=== PATIENT | male | born 1950 | race Caucasian/White ===

== ENCOUNTER → 2017-01-18 | Outpatient (CLI) | payer BC ==
[~2017-01-18] MED LIST: ANTIVERT/2525 M1 PO; ASPIRIN81 M1 PO; BACTRIM DS 8001 TA1 PO; BENTYL10 MG PO; BUSPAR15 MG PO; CELEXA10 MG PO; FINASTERIDE5 M1 PO; LAMICTAL100 MG PO; LAMICTAL200 MG PO; LEXAPRO10 MG PO; LIPITOR40 MG PO; NEURONTIN300 MG PO; NEXIUM40 MG PO; NORCO 5-325 TA1 EACH PO; ROPINIROLE HYDRO1 MG PO; ROPINIROLE HYDRO2 M1 PO; SEROQUEL200 MG PO; TRAZODONE100 MG PO; ZOVIRAX 5%2 GM T
== END | disposition home or self-care (01) ==
LOC: RAD 13:14
DX: R05 Cough (principal); J43.9 Emphysema, unspecified; Z86.79 Personal history of other diseases of the circulatory system

== ENCOUNTER 2017-02-27 11:45 | Emergency (ER) | payer BC ==
[~2017-02-27] VITALS: Ht 182.8 cm; Wt 105.2 kg
[2017-02-27] MEDS ORDERED: CLINDAMYCIN150 MG PO (12:00)
[2017-02-27] MEDS ORDERED: ANTIBIOTIC O500 U/GM T (12:00)
== END 2017-02-27 12:06 | disposition home or self-care (01) ==
LOC: ED 11:45
DX: S61.214A Laceration without foreign body of right ring finger without damage to nail, initial encounter (principal); R03.0 Elevated blood-pressure reading, without diagnosis of hypertension; K21.9 Gastro-esophageal reflux disease without esophagitis; Z79.899 Other long term (current) drug therapy; W26.0XXA Contact with knife, initial encounter; Y93.89 Activity, other specified; Y92.89 Other specified places as the place of occurrence of the external cause; Y99.8 Other external cause status

== ENCOUNTER → 2017-05-22 | Outpatient (CLI) | payer BC ==
[~2017-05-22] MED LIST changes: +ANTIBIOTIC O500 U/GM T; +CLINDAMYCIN150 MG PO
== END | disposition home or self-care (01) ==
LOC: RAD 11:09
DX: J40 Bronchitis, not specified as acute or chronic (principal)

== ENCOUNTER → 2017-10-21 | Day surgery (SDC) | payer BC ==
[~2017-10-21] VITALS: Ht 182.8 cm; Wt 104.3 kg
[2017-10-21] VITALS (8 sets, daily range): BP systolic 98–121; BP diastolic 52–89
--- NOTE | ~2017-10-21 | PROC NOTE ---
[place], [place] PROCEDURE NOTE [id number] #: [id number] ROOM: DOCTOR: TRACI VAUGHN MD BIRTHDATE: [birth year] DOS: 10/21/2017 PROCEDURE: 1. Esophagogastroduodenoscopy and biopsy. 2. Colonoscopy. INDICATIONS: Abdominal pain and colon cancer screening. Informed consent was obtained from the patient after the indication of procedures, alternatives and potential complications were explained to him. PROCEDURE MEDICATIONS: Sedation was administered by Anesthesiology Department. Scope used for upper endoscopy was the Olympus diagnostic adult upper endoscope GIF-180. Depth of insertion was to the descending duodenum. With the colonoscopy, the scope used was Olympus pediatric colonoscope, variable stiffness, GIF-180. Depth of insertion was to the cecum, which was identified by the usual landmarks, appendiceal orifice, ileocecal valve and triangular fold, in addition to transillumination in the right lower quadrant. FINDINGS: After adequate sedation, the patient was placed in left lateral decubitus position. Upper endoscopy was performed first. The scope was introduced under direct visualization through the upper esophageal sphincter into the esophagus. Esophageal mucosa appeared normal with no ulcerations or strictures. Lower esophageal sphincter was identified at 40 cm from incisors. Stomach was then intubated. Gastric mucosa inspected. Moderate gastritis was seen with no discrete ulcers or active bleeding. A CLOtest was performed from the gastric antrum and body. On retroflexed views of the fundus, no hiatal hernia was seen. Pylorus was intubated easily. The duodenal bulb and descending duodenum were within normal range. Scope was then withdrawn after the stomach was decompressed. We then proceeded with a colonoscopy. Rectal examination showed diminished sphincter tone and no external hemorrhoids. Scope was introduced into the rectum and advanced to the cecum with no difficulty. Moderate left-sided diverticular disease was noted, but no acute diverticulitis or diverticular hemorrhage. The remaining colon mucosa appeared otherwise normal with no evidence of polyps, ulcerations or obstructing lesions. Retroflexed views in the rectum were unremarkable. The scope was then withdrawn after the rectum was decompressed. The patient tolerated the procedures well. IMPRESSION: 1. Moderate gastritis, CLOtest performed. 2. Normal upper GI tract otherwise. 3. Diverticulosis of the left colon. 4. Normal colon mucosa otherwise, no polyps seen. PLAN: We will review the CLOtest results and treat the patient accordingly. The patient was advised to follow a high fiber diet and use fiber supplements daily. Repeat screening colonoscopy is recommended in 10 years. Office followup in 1-2 weeks. [place], [place] PROCEDURE NOTE NAME: SANTIAGO TEE UNIT #: [id number] ROOM: DOCTOR: TRACI VAUGHN MD BIRTHDATE: [birth year] TRACI VAUGHN MD CM:PROCNOTE:PROCEDURE NOTE [id number] TRACI VAUGHN MD
== END | disposition home or self-care (01) ==
LOC: SDC 10-18 13:15
DX: Z12.11 Encounter for screening for malignant neoplasm of colon (principal); K29.70 Gastritis, unspecified, without bleeding; K57.30 Diverticulosis of large intestine without perforation or abscess without bleeding; K21.9 Gastro-esophageal reflux disease without esophagitis; F41.9 Anxiety disorder, unspecified; F32.9 Major depressive disorder, single episode, unspecified; Z86.73 Personal history of transient ischemic attack (TIA), and cerebral infarction without residual deficits; Z82.49 Family history of ischemic heart disease and other diseases of the circulatory system

== ENCOUNTER 2017-12-01 12:30 | Emergency (ER) | payer MEDICARE, BC ==
[~2017-12-01] VITALS: Ht 182.8 cm; Wt 106.6 kg
[2017-12-01 13:00] LABS: BASO % 0.4 % (0.0-1.0); EOS # 0.2 10*3/uL (0.0-0.4); HEMATOCRIT 39.2 % (42.0-52.0); HEMOGLOBIN 13.1 g/dl (14.0-18.0); LYMPH # 1.9 10*3/uL (1.3-4.4); LYMPH % 26.2 % (27.0-41.0); MEAN CORPUSCULAR HGB 30.8 pg (27.0-31.0); MEAN CORPUSCULAR HGB CONC 33.4 g/dl (33.0-37.0); MEAN PLATELET VOLUME 9.3 fl (9.6-12.3); MONO # 0.4 10*3/uL (0.1-1.0); NEUT # 4.7 10*3/uL (2.3-7.9); NEUT % 64.1 % (47.0-73.0); PLATELET COUNT AUTOMATED 247 10*3/uL (130-400); RED BLOOD COUNT 4.26 10*6/uL (4.50-5.90); RED CELL DISTRI WIDTH 13.4 % (0-14.5); WHITE BLOOD COUNT 7.4 10*3/uL (4.8-10.8)
[2017-12-01 13:21] LABS: ALBUMIN 3.8 gm/dl (3.1-4.5); ALKALINE PHOSPHATASE 95 U/L (45-117); BUN 16 mg/dl (7-24); CHLORIDE 100 mmol/L (98-107); CREATININE 1.16 mg/dL (0.70-1.30); POTASSIUM 3.9 mmol/L (3.5-5.1); SGOT/AST 23 IU/L (3-35); SGPT/ALT 25 U/L (12-78); SODIUM 139 mmol/L (136-145); TOTAL PROTEIN 7.9 gm/dL (6.4-8.2)
[2017-12-01 13:24] LABS: ETHYL ALCOHOL < 3.0 mg/dl (<3)
[2017-12-01 13:29] LABS: THYROID STIM HORMONE (HS) 0.752 uIU/ml (0.358-4.75)
[2017-12-01 14:46] LABS: BILIRUBIN NEGATIVE (NEGATIVE); BLOOD NEGATIVE (NEGATIVE); CLARITY CLEAR (CLEAR); COLOR YELLOW (YELLOW); GLUCOSE NEGATIVE (NEGATIVE); KETONE NEGATIVE (NEGATIVE); LEUKO ESTERASE NEGATIVE (NEGATIVE); NITRITE NEGATIVE (NEGATIVE); SPECIFIC GRAVITY <= 1.005 (1.005-1.030); UROBILINOGEN 0.2 E.U./dl (0.2-1.0)
[2017-12-01 14:59] LABS: BACTERIA TRACE; EPITHELIAL CELLS 0-2; RBC 0-2 rbc/hpf (0-2)
[2017-12-01 15:02] LABS: URINE AMPHETAMINES < 1000 (1000ng/ml); URINE BENZODIAZEPINES < 200 (200ng/ml); URINE CANNABINOIDS (THC) < 50 (50ng/ml); URINE METHADONE < 300 (300ng/ml)
[2017-12-01 15:04] LABS: URINE BARBITURATES < 200 (200ng/ml); URINE COCAINE < 300 (300ng/ml); URINE OPIATES < 300 (300ng/ml)
[2017-12-01 15:07] LABS: URINE PHENCYCLIDINE < 25 (25ng/ml)
== END 2017-12-01 15:58 | disposition other institution (70) ==
LOC: ED 12:30
PROVIDERS: Nurse Practitioner Family
DX: F33.9 Major depressive disorder, recurrent, unspecified (principal); K21.9 Gastro-esophageal reflux disease without esophagitis; Z79.899 Other long term (current) drug therapy

== ENCOUNTER 2017-12-01 16:01 | Inpatient (IN) | payer MEDICARE, BC ==
[~2017-12-01] VITALS: Ht 182.8 cm; Wt 106.6 kg
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
--- NOTE | ~2017-12-01 | PR ---
[place], [place] PROGRESS NOTE NAME: SANTIAGO TEE UNIT #: [id number] ROOM: 314 DOCTOR: MEKHI NIX MD BIRTHDATE: [birth year] DOS: 12/04/2017 CHIEF COMPLAINT: "I think I have it figured out where I am going to go and I think these medicines are actually helping." SUMMARY OF THE VISIT: The patient was interviewed in the dining area where he was sitting watching television. He engaged readily in conversation and reported that he is sleeping better. He is feeling better. He still now is complaining of some back pain and this may be related to some med seeking, but otherwise he seems brighter upon approach. He states that he does have some ideas about where he can go once he is discharged and feels that he is in charge of things now. He convincingly denies medication side effects. He denies suicidal thoughts, homicidal thoughts or any self-injurious thoughts. MENTAL STATUS: He is alert and oriented to person, place and time. Mood does seem to be euthymic. Affect appropriate. There is no charla, hypomania or psychosis. Memory is intact. PLAN: I will max out the Vraylar to 6 mg at bedtime, continue to support and monitor, engage in individual and brock milieu activity, returning to the least restrictive environment when psychiatrically stable. MEKHI NIX MD CM:PNTRANS [id number] MEKHI NIX MD 12/04/17 1136 interface
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
--- NOTE | ~2017-12-01 | PR ---
[place], [place] PROGRESS NOTE NAME: SANTIAGO TEE UNIT #: [id number] ROOM: 314 DOCTOR: MEKHI NIX MD BIRTHDATE: [birth year] DOS: 12/03/2017 CHIEF COMPLAINT: "Can I have something for sleep. I think I'm doing better." SUMMARY OF THE VISIT: The patient was interviewed in the dining area. He reported to me that he thinks he is feeling less depressed and is doing well. His initial concern that these medicines would not be effective or would cause side effects is dissipating and he does state that he is now hopeful that they will offer an improvement over his previous medication. He did report he did not sleep well, although nurses report the contrary that he slept throughout the night. He convincingly denies medication side effects. MENTAL STATUS: He is alert and oriented with some time gaps. Mood does still seem to be depressed with anxious overtones. He reports a lot of intrusive, obsessive thoughts, but his racing thoughts that he noted previously are dissipating. There is no hypomania or charla. There is no acute psychosis noted. Memory for the most part is intact. PLAN: His vitamin D level is subtherapeutic at 14.6. So, I will augment with vitamin D 50,000 International Units weekly. I will increase the Remeron from 15 mg at bedtime to 22.5 mg at bedtime while simultaneously increasing the Vraylar from 3-4.5 mg at bedtime to further stabilize mood. I will add Rozerem, a nonaddicting sleep aid at 8 mg at bedtime to further aid his sleep. We will engage in individual and brock milieu activity with the ultimate plan to return home or the least restrictive environment when psychiatrically stable. MEKHI NIX MD CM:PNTRANS [id number] MEKHI NIX MD 12/03/17 0933 interface
[2017-12-01 16:20] VITALS: BP 144/84
[2017-12-01 19:49] VITALS: BP 133/80
[2017-12-02 07:39] VITALS: BP 119/72
[2017-12-02 08:01] LABS: ACT PARTIAL THROMBO TIME 22.4 SECONDS (20.8-31.5); INTERNATIONAL NORM RATIO 1.2 (2.0-3.5)
[2017-12-02 08:05] LABS: THYROID STIM HORMONE (HS) 0.719 uIU/ml (0.358-4.75)
[2017-12-02 09:02] LABS: VITAMIN D, 25-HYDROXY 14.6 ng/mL (30-100)
[2017-12-02 20:00] VITALS: BP 129/72
[2017-12-03 07:57] VITALS: BP 127/86
[2017-12-03 20:01] VITALS: BP 117/76
[2017-12-04 07:49] VITALS: BP 132/70
[2017-12-04 20:03] VITALS: BP 121/74
[2017-12-05 07:43] VITALS: BP 138/76
[2017-12-05] MEDS ORDERED: ROZEREM8 MG PO (09:15)
[2017-12-05] MEDS ORDERED: MIRTAZAPINE15 M2 PO (09:15)
[2017-12-05] MEDS ORDERED: Vitamin D PO (09:15)
[2017-12-05] MEDS ORDERED: GABAPENTIN400 MG PO (09:15)
[2017-12-05] MEDS ORDERED: LAMOTRIGINE100 MG PO (09:15)
[2017-12-05] MEDS ORDERED: VRAYLAR6 MG PO (09:15)
[2017-12-06 10:03] LABS: NEURONTIN (GABAPENTIN) 3.9 ug/mL (4.0-16.0)
== END 2017-12-05 14:11 | disposition home or self-care (01) | DRG 885 ==
LOC: 3N 16:01
PROVIDERS: Family Medicine Adult Medicine; Psychiatry & Neurology Psychiatry
DX: F31.81 Bipolar II disorder (principal); R45.851 Suicidal ideations; I10 Essential (primary) hypertension; K21.9 Gastro-esophageal reflux disease without esophagitis; X08.8XXA Exposure to other specified smoke, fire and flames, initial encounter; F41.9 Anxiety disorder, unspecified; T23.071A Burn of unspecified degree of right wrist, initial encounter; G25.81 Restless legs syndrome; D64.9 Anemia, unspecified; E78.2 Mixed hyperlipidemia; Z98.52 Vasectomy status; Z82.49 Family history of ischemic heart disease and other diseases of the circulatory system; Z82.0 Family history of epilepsy and other diseases of the nervous system; Z79.899 Other long term (current) drug therapy; Y93.89 Activity, other specified; Y92.89 Other specified places as the place of occurrence of the external cause; Y99.8 Other external cause status

== ENCOUNTER → 2019-03-16 | Outpatient (CLI) | payer MEDICARE ==
[~2019-03-16] MED LIST changes: +CEPHALEXIN500 M1 PO; +GABAPENTIN400 MG PO; +LAMOTRIGINE100 MG PO; +MIRTAZAPINE15 M2 PO; +ROZEREM8 MG PO; +VRAYLAR6 MG PO; +Vitamin D PO
[2019-03-16 13:15] LABS: BASO # 0.1 10*3/uL (0.0-0.1); BASO % 0.7 % (0.0-1.0); EOS # 0.3 10*3/uL (0.0-0.4); EOS % 3.9 % (1.0-4.0); HEMATOCRIT 42.5 % (42.0-52.0); HEMOGLOBIN 14.2 g/dl (14.0-18.0); LYMPH # 2.2 10*3/uL (1.3-4.4); LYMPH % 31.1 % (27.0-41.0); MEAN CELL VOLUME 93.8 fl (80.0-94.0); MEAN CORPUSCULAR HGB 31.3 pg (27.0-31.0); MEAN CORPUSCULAR HGB CONC 33.4 g/dl (33.0-37.0); MEAN PLATELET VOLUME 9.9 fl (9.6-12.3); MONO # 0.5 10*3/uL (0.1-1.0); MONO % 6.8 % (3.0-9.0); NEUT # 4.1 10*3/uL (2.3-7.9); NEUT % 57.2 % (47.0-73.0); PLATELET COUNT AUTOMATED 236 10*3/uL (130-400); RED BLOOD COUNT 4.53 10*6/uL (4.50-5.90); RED CELL DISTRI WIDTH 13.7 % (0-14.5); WHITE BLOOD COUNT 7.1 10*3/uL (4.8-10.8)
[2019-03-16 13:47] LABS: ALBUMIN 3.8 gm/dl (3.1-4.5); ALKALINE PHOSPHATASE 100 U/L (45-117); BUN 17 mg/dl (7-24); CHLORIDE 107 mmol/L (98-107); CHOLESTEROL 164 mg/dL (<200); HDL CHOLESTEROL 52 mg/dl (40-60); LDL CHOLESTEROL 88 mg/dL (9-159); SGOT/AST 11 IU/L (3-35); SGPT/ALT 19 U/L (12-78); SODIUM 142 mmol/L (136-145); TRIGLYCERIDES 120 mg/dl (<150); VLDL CHOLESTEROL 24 mg/dL (6-40)
== END | disposition home or self-care (01) ==
LOC: LAB 12:39
PROVIDERS: Nurse Practitioner Family
DX: I10 Essential (primary) hypertension (principal); E78.5 Hyperlipidemia, unspecified

== ENCOUNTER 2019-03-21 18:37 | Emergency (ER) | payer MEDICARE ==
[~2019-03-21] VITALS: Ht 182.8 cm; Wt 100.2 kg
[~2019-03-21 18:37] MED LIST changes: -CEPHALEXIN500 M1 PO
[2019-03-21 18:56] LABS: BILIRUBIN 1+ (NEGATIVE); BLOOD 2+ (NEGATIVE); CLARITY CLEAR (CLEAR); COLOR YELLOW (YELLOW); GLUCOSE NEGATIVE (NEGATIVE); KETONE NEGATIVE (NEGATIVE); LEUKO ESTERASE NEGATIVE (NEGATIVE); NITRITE NEGATIVE (NEGATIVE); SPECIFIC GRAVITY >= 1.030 (1.005-1.030); UROBILINOGEN 0.2 E.U./dl (0.2-1.0)
[2019-03-21 19:08] LABS: BACTERIA 2+; MUCOUS 2+; RBC TNTC rbc/hpf (0-2)
[2019-03-21 19:11] LABS: BASO % 0.4 % (0.0-1.0); EOS # 0.1 10*3/uL (0.0-0.4); HEMATOCRIT 39.5 % (42.0-52.0); HEMOGLOBIN 13.1 g/dl (14.0-18.0); LYMPH # 2.9 10*3/uL (1.3-4.4); LYMPH % 25.6 % (27.0-41.0); MEAN CELL VOLUME 93.6 fl (80.0-94.0); MEAN CORPUSCULAR HGB CONC 33.2 g/dl (33.0-37.0); MEAN PLATELET VOLUME 9.9 fl (9.6-12.3); MONO # 0.6 10*3/uL (0.1-1.0); MONO % 5.2 % (3.0-9.0); NEUT # 7.6 10*3/uL (2.3-7.9); NEUT % 67.4 % (47.0-73.0); PLATELET COUNT AUTOMATED 199 10*3/uL (130-400); RED BLOOD COUNT 4.22 10*6/uL (4.50-5.90); RED CELL DISTRI WIDTH 13.9 % (0-14.5); WHITE BLOOD COUNT 11.3 10*3/uL (4.8-10.8)
[2019-03-21 19:21] LABS: INTERNATIONAL NORM RATIO 1.2 (2.0-3.5)
[2019-03-21 19:25] LABS: ALBUMIN 3.7 gm/dl (3.1-4.5); ALKALINE PHOSPHATASE 92 U/L (45-117); BUN 20 mg/dl (7-24); CHLORIDE 107 mmol/L (98-107); POTASSIUM 3.8 mmol/L (3.5-5.1); SGOT/AST 13 IU/L (3-35); SGPT/ALT 23 U/L (12-78); SODIUM 142 mmol/L (136-145); TOTAL PROTEIN 7.9 gm/dL (6.4-8.2)
[2019-03-21] MEDS ORDERED: CEPHALEXIN500 M1 PO (20:33)
== END 2019-03-21 20:58 | disposition home or self-care (01) ==
LOC: ED 18:37
PROVIDERS: Nurse Practitioner Family
DX: N39.0 Urinary tract infection, site not specified (principal); Z79.899 Other long term (current) drug therapy; Z86.73 Personal history of transient ischemic attack (TIA), and cerebral infarction without residual deficits

== ENCOUNTER → 2020-05-15 | Outpatient (CLI) | payer MEDICARE ==
[~2020-05-15] MED LIST changes: +CEPHALEXIN500 M1 PO
== END | disposition home or self-care (01) ==
LOC: LAB 11:22
DX: Z12.5 Encounter for screening for malignant neoplasm of prostate (principal); N39.41 Urge incontinence

== ENCOUNTER → 2021-05-30 | Outpatient (CLI) | payer MEDICARE | END | disposition home or self-care (01) | LOC: LAB 10:26 | PROVIDERS: ATTEND Urology | DX: Z12.5 Encounter for screening for malignant neoplasm of prostate (principal); N40.1 Benign prostatic hyperplasia with lower urinary tract symptoms ==